=== PATIENT | female | born 1975 | race Caucasian/White ===

== ENCOUNTER 2016-05-25 07:23 | Day surgery (SDC) | payer OTHER ==
[~2016-05-25] VITALS: Ht 167.6 cm; Wt 89.8 kg
[2016-05-25 08:09] VITALS: BP 110/64
[2016-05-25] MEDS ORDERED: NORCO 5/3251 TABLET PO (11:00)
[2016-05-25] MEDS ORDERED: IBUPROFEN800 MG PO (11:00)
[2016-05-25 12:00] VITALS: BP 141/65
[2016-05-25 12:55] VITALS: BP 122/70
== END 2016-05-25 13:01 | disposition home or self-care (01) ==
LOC: SDC 07:23
DX: R10.2 Pelvic and perineal pain (principal); N80.3 Endometriosis of pelvic peritoneum; N83.201 Unspecified ovarian cyst, right side; I10 Essential (primary) hypertension; G40.909 Epilepsy, unspecified, not intractable, without status epilepticus
CPT/HCPCS: 88305; J0131; J1100; J1885; J2250; J2405; J3010